=== PATIENT | female | born 1945 | race African-American/Black ===

== ENCOUNTER 2017-06-16 09:01 | Emergency (ER) | payer OTHER ==
--- NOTE | 2017-06-16 11:09 | RAD REPORT ---
EXAM DESCRIPTION: RAD - Chest Single View - 06/16/2017 11:02 am CLINICAL HISTORY: Persistent chest pain and body ache, cough COMPARISON: None. TECHNIQUE: AP portable chest image was obtained . FINDINGS: Lungs are clear. Heart and vasculature are normal. No measurable pleural effusion and no p neumothorax. Bony degenerative changes are present more notable at the left shoulder joint. No acute bone process suspected on limited evaluation. No acute aortic findings suspected. IMPRESSION: No acute cardiopulmonary process.
[2017-06-16 11:29] LABS: Absolute Lymphocytes (CBC) 2.2 K/uL (0.7-4.9); Absolute Monocytes 0.5 K/uL (0.1-1.3); Absolute Neutrophil 4.3 K/uL (1.8-8.0); Basophils % 0.4 % (0-1.3); Eosinophils % 0.2 % (0-4.4); Hematocrit 32.5 % (36.0-45.0); Lymphocytes % 31.4 % (15.3-44.8); MCH 29.5 pg (27.0-35.0); MPV 8.7 fL (7.6-11.3); Monocytes % 7.3 % (3.3-12.3); RBC Red Blood Cell Count 3.69 M/uL (3.86-4.86)
[2017-06-16 11:40] LABS: Bicarbonate 31 mEq/L (21-31); Glucose Level 85 mg/dL (65-120); Lipase 14 U/L (22-51); Potassium 3.6 mEq/L (3.6-5.0); Sodium Level 140 mEq/L (135-145)
[2017-06-16 11:46] LABS: ALT/SGPT 18 IU/L (10-60); AST/SGOT 23 IU/L (10-42); Albumin 3.7 g/dL (3.2-5.5); Alkaline Phosphatase 60 IU/L (42-121); BUN Blood Urea Nitrogen 15 mg/dL (6-20); Bilirubin Direct < 0.1 mg/dL (0-0.2); Bilirubin Total 0.5 mg/dL (0.3-1.2); Creatine Phosphokinase 74 IU/L (22-269); Magnesium 1.6 mg/dL (1.8-2.5); Protein, Total 7.1 g/dL (6.0-8.3)
[2017-06-16 11:49] LABS: CKMB Creatine Kinase MB 1.4 ng/ml (0.3-4.0)
[2017-06-16 11:52] LABS: Protime INR 0.99
[2017-06-16] MEDS ORDERED: FENTANYL CITR 100 MCG/2 ML ONE (12:54)
[2017-06-16] MEDS ORDERED: NA CHLORIDE 0.9% 1,000 ML ONE (12:54)
[2017-06-16] MEDS ORDERED: ONDANSETRON 4 MG/2 ML VIAL ONE (12:55)
--- NOTE | 2017-06-16 13:12 | EDPHYS ---
Physician Documentation [facility] Name: Nya Romero Age: 71 yrs Sex: Female : 1945 Arrival Date: 06/16/2017 Time: 09:04 Bed Treatment Private MD: Codey Garcia R ED Physician Tyron Torres HPI: 06/16 10:56 This 71 yrs old Black Female presents to ER via Wheelchair with complaints of Pain All jennifer Over. 10:56 hx chronic pain. Onset: The symptoms/episode began/occurred 3 day(s) ago. Severity of jennifer symptoms: At their worst the symptoms were mild in the emergency department the symptoms are unchanged. The patient has not experienced similar symptoms in the past. Historical: - Allergies: 09:56 PENICILLINS; iw - PMHx: 09:56 Arthritis; CVA; iw - PSHx: 09:56 None; iw - Immunization history:: Adult Immunizations up to date. - Social history:: Smoking status: Patient/guardian denies using tobacco. - Family history:: not pertinent. ROS: 10:56 Constitutional: Negative for fever, chills, and weight loss, Eyes: Negative for injury, jennifer pain, redness, and discharge, ENT: Negative for injury, pain, and discharge, Neck: Negative for injury, pain, and swelling, Cardiovascular: Negative for chest pain, palpitations, and edema, Respiratory: Negative for shortness of breath, cough, wheezing, and pleuritic chest pain, Abdomen/GI: Negative for abdominal pain, nausea, vomiting, diarrhea, and constipation, Back: Negative for injury and pain, : Negative for injury, bleeding, discharge, and swelling, Skin: Negative for injury, rash, and discoloration, Neuro: Negative for headache, weakness, numbness, tingling, and seizure, Psych: Negative for depression, anxiety, suicide ideation, homicidal ideation, and hallucinations, Allergy/Immunology: Negative for hives, rash, and allergies, Endocrine: Negative for neck swelling, polydipsia, polyuria, polyphagia, and marked weight changes. 10:56 MS/extremity: Positive for decreased range of motion, pain, of the right arm, left arm, right leg and left leg. Exam: 10:56 Constitutional: This is a well developed, well nourished patient who is awake, alert, jennifer and in no acute distress. Head/Face: Normocephalic, atraumatic. Eyes: Pupils equal round and reactive to light, extra-ocular motions intact. Lids and lashes normal. Conjunctiva and sclera are non-icteric and not injected. Cornea within normal limits. Periorbital areas with no swelling, redness, or edema. ENT: Nares patent. No nasal discharge, no septal abnormalities noted. Tympanic membranes are normal and external auditory canals are clear. Oropharynx with no redness, swelling, or masses, exudates, or evidence of obstruction, uvula midline. Mucous membranes moist. Neck: Trachea midline, no thyromegaly or masses palpated, and no cervical lymphadenopathy. Supple, full range of motion without nuchal rigidity, or vertebral point tenderness. No Meningismus. Chest/axilla: Normal chest wall appearance and motion. Nontender with no deformity. No lesions are appreciated. Cardiovascular: Regular rate and rhythm with a normal S1 and S2. No gallops, murmurs, or rubs. Normal PMI, no JVD. No pulse deficits. Respiratory: Lungs have equal breath sounds bilaterally, clear to auscultation and percussion. No rales, rhonchi or wheezes noted. No increased work of breathing, no retractions or nasal flaring. Abdomen/GI: Soft, non-tender, with normal bowel sounds. No distension or tympany. No guarding or rebound. No evidence of tenderness throughout. Back: No spinal tenderness. No costovertebral tenderness. Full range of motion. Skin: Warm, dry with normal turgor. Normal color with no rashes, no lesions, and no evidence of cellulitis. Neuro: Awake and alert, GCS 15, oriented to person, place, time, and situation. Cranial nerves II-XII grossly intact. Motor strength 5/5 in all extremities. Sensory grossly intact. Cerebellar exam normal. Normal gait. Psych: Awake, alert, with orientation to person, place and time. Behavior, mood, and affect are within normal limits. 10:56 Musculoskeletal/extremity: Extremities: decreased ROM, pain, ROM: limited active range of motion, limited passive range of motion, Circulation is intact in all extremities. Sensation intact. Compartment Syndrome exam of affected extremity: is normal. DVT Exam: no swelling, negative Homans' sign noted on exam, no appreciated bluish discoloration, no erythema, no increased warmth, pain, tenderness, that is mild. 13:09 Neck: External neck: is normal, no acute changes, C-spine: appears grossly normal, no jennifer acute changes, Thyroid: appears normal, no acute changes, Trachea: is midline with no obvious abnormalities, ROM/movement: is normal, no acute changes, Lymph nodes: no appreciated lymphadenopathy. Vital Signs: 09:56 BP 113 / 67; Pulse 64; Resp 16; Temp 98.4; Pulse Ox 100% on R/A; Weight 74.84 kg; iw Height 5 ft. 5 in. (165.10 cm); Pain 10/10; 10:10 BP 138 / 77; Pulse 61; Resp 20; Pulse Ox 98% on R/A; aj1 11:15 BP 122 / 53; Pulse 63; Resp 18; Pulse Ox 99% on R/A; aj1 12:15 BP 122 / 55; Pulse 63; Resp 18; Pulse Ox 99% ; aj1 13:16 BP 116 / 48; Pulse 63; Resp 14; Pulse Ox 99% ; aj1 14:15 BP 115 / 52; Pulse 62; Resp 18; Pulse Ox 99% ; aj1 15:15 BP 122 / 57; Pulse 65; Resp 18; Pulse Ox 97% on R/A; aj1 16:00 BP 124 / 60; Pulse 63; Resp 18; Pulse Ox 99% ; aj1 09:56 Body Mass Index 27.46 (74.84 kg, 165.10 cm) iw MDM: 10:07 Patient medically screened. [facility] 13:09 Data reviewed: vital signs, nurses notes, lab test result(s), EKG, radiologic studies, [facility] plain films. 06/16 10:12 Order name: Basic Metabolic Panel; Complete Time: 12: [facility] 06/16 10:12 Order name: BNP; Complete Time: 12: [facility] 06/16 10:12 Order name: CBC with Diff; Complete Time: 12: [facility] 06/16 10:12 Order name: Ckmb; Complete Time: 12: [facility] 06/16 10:12 Order name: CPK; Complete Time: 12: [facility] 06/16 10:12 Order name: LFT's; Complete Time: 12: [facility] 06/16 10:12 Order name: Magnesium; Complete Time: 12: [facility] 06/16 10:12 Order name: PT-INR; Complete Time: 12: [facility] 06/16 10:12 Order name: Ptt, Activated; Complete Time: 12: [facility] 06/16 10:12 Order name: Troponin (emerg Dept Use Only); Complete Time: 12: [facility] 06/16 10:12 Order name: Lipase; Complete Time: 12: [facility] 06/16 13:30 Order name: Urine Dipstick--Ancillary (enter results) 06/16 10:12 Order name: XRAY Chest (1 view); Complete Time: 12: [facility] 06/16 10:12 Order name: EKG; Complete Time: 10: [facility] 06/16 10:12 Order name: Cardiac monitoring; Complete Time: 12: [facility] 06/16 10:12 Order name: EKG - Nurse/Tech; Complete Time: 12: [facility] 06/16 10:12 Order name: IV Saline Lock; Complete Time: 12: [facility] 06/16 10:12 Order name: Labs collected and sent; Complete Time: 12: [facility] 06/16 10:12 Order name: O2 Per Protocol; Complete Time: 12: [facility] 06/16 10:12 Order name: O2 Sat Monitoring; Complete Time: 12:19 [facility] Administered Medications: 13:08 Drug: NS 0.9% 1000 ml Route: IV; Rate: 125 ml/hr; Site: right antecubital; aj1 13:08 Drug: fentaNYL (PF) 25 mcg Route: IVP; Site: right antecubital; aj1 14:47 Follow up: Response: No adverse reaction aj1 13:09 Drug: Zofran 4 mg Route: IVP; Site: right antecubital; aj1 14:47 Follow up: Response: No adverse reaction aj1 14:46 Drug: Magnesium Sulfate 1 grams Route: IVPB; Infused Over: 1 hrs; Site: right aj1 antecubital; Disposition: 06/16/17 13:12 Discharged to Home. Impression: Malaise and fatigue, Other chronic pain, Hypomagnesemia. - Condition is Stable. - Discharge Instructions: Chronic Pain, Hypomagnesemia, Weakness, Weakness, [id number]. - Medication Reconciliation Form, Thank You Letter, Antibiotic Education, Prescription Opioid Use form. - Follow up: Codey Garcia MD; When: 2 - 3 days; Reason: Recheck today's complaints, Continuance of care, Re-evaluation by your physician. - Problem is new. - Symptoms have improved. Signatures: Dispatcher [employer] Melida Raines RN RN aj1 Kendrick Rocha RN RN sg Anderson, Corey, MD MD cha Williams, Irene, RN RN iw Corrections: (The following items were deleted from the chart) 16:33 10:13 Urine Culture+BA.LAB.BRZ ordered. EDMS EDMS 16:33 10:13 BLOOD CULTURE*+BA.LAB.BRZ ordered. EDMS EDMS
--- NOTE | 2017-06-16 13:12 | ER ---
Nurse's Notes [facility] Name: Nya Romero Age: 71 yrs Sex: Female : 1945 Arrival Date: 06/16/2017 Time: 09:04 Bed Treatment Private MD: Codey Garcia R Diagnosis: Malaise and fatigue;Other chronic pain;Hypomagnesemia Presentation: 06/16 09:53 Presenting complaint: Child states: has had full body pain since , denies iw injury, also feeling more weak than usual, not able to hold herself up as well, denies fever but feels cold sometimes. Transition of care: patient was not received from another setting of care. Onset of symptoms was June 13, 2017. Initial Sepsis Screen: Does the patient meet any 2 criteria? No. Patient's initial sepsis screen is negative. Does the patient have a suspected source of infection? No. Patient's initial sepsis screen is negative. Care prior to arrival: None. 09:53 Method Of Arrival: Wheelchair iw 09:53 Acuity: TUYET 3 iw Historical: - Allergies: 09:56 PENICILLINS; iw - PMHx: 09:56 Arthritis; CVA; iw - PSHx: 09:56 None; iw - Immunization history:: Adult Immunizations up to date. - Social history:: Smoking status: Patient/guardian denies using tobacco. - Family history:: not pertinent. Screenin:10 Abuse screen: Denies threats or abuse. Denies injuries from another. Nutritional aj1 screening: No deficits noted. Tuberculosis screening: No symptoms or risk factors identified. Assessment: 10:10 General: Appears in no apparent distress. uncomfortable, Behavior is calm, cooperative, aj1 appropriate for age. Pain: Complains of pain in entire body Pain currently is 10 out of 10 on a pain scale. Quality of pain is described as aching, stabbing. Neuro: Level of Consciousness is awake, alert, obeys commands, Oriented to person, place, time, situation, Professor Of Astronomy are weak bilaterally Moves all extremities. Weakness Facial symmetry appears normal. Cardiovascular: Patient's skin is warm and dry. Respiratory: Airway is patent Respiratory effort is even, unlabored, Respiratory pattern is regular, symmetrical, Breath sounds are clear bilaterally. GI: No signs and/or symptoms were reported involving the gastrointestinal system. : No signs and/or symptoms were reported regarding the genitourinary system. EENT: No signs and/or symptoms were reported regarding the EENT system. Derm: No signs and/or symptoms reported regarding the dermatologic system. Skin is pink, warm \T\ dry. normal. Musculoskeletal: No signs and/or symptoms reported regarding the musculoskeletal system. Circulation, motion, and sensation intact. 11:10 Reassessment: Patient appears in no apparent distress at this time. No changes from aj1 previously documented assessment. Patient and/or family updated on plan of care and expected duration. Pain level reassessed. Patient is alert, oriented x 3, equal unlabored respirations, skin warm/dry/pink. 12:10 Reassessment: Patient appears in no apparent distress at this time. No changes from aj1 previously documented assessment. Patient and/or family updated on plan of care and expected duration. Pain level reassessed. Patient is alert, oriented x 3, equal unlabored respirations, skin warm/dry/pink. 13:14 Reassessment: Patient appears in no apparent distress at this time. No changes from aj1 previously documented assessment. Patient and/or family updated on plan of care and expected duration. Pain level reassessed. Patient is alert, oriented x 3, equal unlabored respirations, skin warm/dry/pink. 15:15 Reassessment: Patient and/or family updated on plan of care and expected duration. Pain aj1 level reassessed. General: Appears in no apparent distress. comfortable, Behavior is calm, cooperative, appropriate for age. Neuro: Level of Consciousness is awake, alert, obeys commands, Oriented to person, place, time, situation. Cardiovascular: Patient's skin is warm and dry. Respiratory: Airway is patent Respiratory effort is even, unlabored, Respiratory pattern is regular, symmetrical. GI: No signs and/or symptoms were reported involving the gastrointestinal system. : No signs and/or symptoms were reported regarding the genitourinary system. EENT: No signs and/or symptoms were reported regarding the EENT system. Derm: No signs and/or symptoms reported regarding the dermatologic system. Skin is pink, warm \T\ dry. normal. Musculoskeletal: No signs and/or symptoms reported regarding the musculoskeletal system. Circulation, motion, and sensation intact. 16:09 Reassessment: Patient appears in no apparent distress at this time. No changes from aj1 previously documented assessment. Patient and/or family updated on plan of care and expected duration. Pain level reassessed. Patient is alert, oriented x 3, equal unlabored respirations, skin warm/dry/pink. Vital Signs: 09:56 BP 113 / 67; Pulse 64; Resp 16; Temp 98.4; Pulse Ox 100% on R/A; Weight 74.84 kg; iw Height 5 ft. 5 in. (165.10 cm); Pain 10/10; 10:10 BP 138 / 77; Pulse 61; Resp 20; Pulse Ox 98% on R/A; aj1 11:15 BP 122 / 53; Pulse 63; Resp 18; Pulse Ox 99% on R/A; aj1 12:15 BP 122 / 55; Pulse 63; Resp 18; Pulse Ox 99% ; aj1 13:16 BP 116 / 48; Pulse 63; Resp 14; Pulse Ox 99% ; aj1 14:15 BP 115 / 52; Pulse 62; Resp 18; Pulse Ox 99% ; aj1 15:15 BP 122 / 57; Pulse 65; Resp 18; Pulse Ox 97% on R/A; aj1 16:00 BP 124 / 60; Pulse 63; Resp 18; Pulse Ox 99% ; aj1 09:56 Body Mass Index 27.46 (74.84 kg, 165.10 cm) iw ED Course: 09:04 Patient arrived in ED. mr 09:05 Codey Garcia MD is Private Physician. mr 09:56 Triage completed. iw 09:56 Arm band placed on. iw 10:07 Tyron Torres MD is Attending Physician. jennifer 10:10 Patient has correct armband on for positive identification. Bed in low position. Call aj1 light in reach. Side rails up X 1. bus driver/monitor on. Pulse ox on. NIBP on. 10:10 No provider procedures requiring assistance completed. aj1 10:38 Melida Johnson, RN is Primary Nurse. aj1 10:41 X-ray completed. Portable x-ray completed in exam room. Patient tolerated procedure ml well. 10:42 XRAY Chest (1 view) In Process Unspecified. EDMS 10:52 EKG done, by photovoltaic installation technician. reviewed by Tyron Torres MD. at1 13:10 Codey Garica MD is Referral Physician. jennifer 16:00 Primary Nurse role handed off by Melida Johnson RN 16:00 Kendrick Rocha, RN is Primary Nurse. 16:10 Report given to Aishwarya Rocha RN. Patient moved to treatment room to wait for her ride to [facility] return. 16:30 IV discontinued, intact, bleeding controlled, No redness/swelling at site. Pressure sg dressing applied. Administered Medications: 13:08 Drug: NS 0.9% 1000 ml Route: IV; Rate: 125 ml/hr; Site: right antecubital; [facility] 13:08 Drug: fentaNYL (PF) 25 mcg Route: IVP; Site: right antecubital; [facility] 14:47 Follow up: Response: No adverse reaction [facility] 13:09 Drug: Zofran 4 mg Route: IVP; Site: right antecubital; [facility] 14:47 Follow up: Response: No adverse reaction [facility] 14:46 Drug: Magnesium Sulfate 1 grams Route: IVPB; Infused Over: 1 hrs; Site: right [facility] antecubital; Outcome: 13:12 Discharge ordered by MD. rodriguez 16:30 Discharged to home via wheelchair, with family. 16:30 Condition: good 16:30 Discharge instructions given to patient, Instructed on discharge instructions, follow up and referral plans. safety practices, Demonstrated understanding of instructions, follow-up care. 16:33 Patient left the ED. sg Signatures: Dispatcher [employer] EDMS Melida Johnson, JEREMY LUNA [facility] Kendrick Rocha, RN Tyron Levine MD MD cha Rivera, Maria mr Williams, Irene, RN Chantelle William Amanda, administrative supervisor EKG Tat1 Corrections: (The following items were deleted from the chart) 16:02 14:15 BP 115 / 5; Pulse 62bpm; Resp 18bpm; Pulse Ox 99%; aj1 aj
[2017-06-16 13:52] LABS: Urine Blood NEGATIVE (NEG); Urine Glucose NEGATIVE (NEG); Urine Protein NEGATIVE (NEG); Urine Specific Gravity <1.005 (1.005-1.030); Urine pH 5.5 (5.0-7.0)
--- NOTE | 2017-06-16 13:53 | EKG ---
Test Date: 2017-06-16 Test Time: 10:40:24 Spanish Language Lecturer: ALAN MEASUREMENT RESULTS: Intervals: Rate: 61 WV: 198 QRSD: 74 QT: 406 QTc: 408 Murphy: P: 72 WV: 198 QRS: 21 T: 45 INTERPRETIVE STATEMENTS: Normal sinus rhythm Normal ECG Compared to ECG 03/24/2017 13:32:43 No significant changes Electronically Signed On 06-16-17 13:52:30 CDT by Isidoro Salas
[2017-06-16] MEDS ORDERED: MAGNESIUM SULFATE 1 gm IVPB 1 GM/100 ML BAG IV ONE (14:43)
== END 2017-06-16 16:33 | disposition home or self-care (01) ==
LOC: ER 09:01
DX: R53.81 Other malaise (principal); R53.83 Other fatigue; E83.42 Hypomagnesemia; Z88.0 Allergy status to penicillin
CPT/HCPCS: 36415; 71045; 80048; 80076; 81003; 82550; 82553; 83690; 83735; 83880; 84484; 85025; 85610; 85730; 93005; 96374; 96375; 99284; J2405; J3010; J3475; J7030

== ENCOUNTER 2021-03-04 14:54 | Emergency (ER) | payer OTHER ==
--- OUTSIDE RECORDS SUMMARY | 2021-03-04 14:57 | XMS REPORT | Continuity of Care Document ---
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 [place] [place] - of left of left Memoria nondominan nondominan l t side as t side as Outp ati late late ent effect of effect of Clin ics cerebrovas cerebrovas cular cular disease, disease, unspecifie unspecifie d d 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 Primary Primary Diagnosis Active [facility] osteoarthr osteoarthr [facility] - itis, left itis, left Me moria shoulder shoulder l Outpati ent Clinics No known No known Disease Unive rs active active ity of problems problems [place] [facility] Allergies, Adverse Reactions, Alerts Allergy Allergy Status Severity Reaction(s) Onset Inactive Treating Comm ents Source Name Type Date Date Clinician Penicill Propensi Active Hives Univer s ins ty to 3-12 ity of adverse 00:00: [place] reaction 00 Medical s Branch Peniclli Adverse Active Info Not [facility] Sabrina funes [facility] Clin[facility] Social History Social Habit Start Date Stop Date Quantity Comments Source Exposure to Not sure [facility] SARS-CoV-2 (event) Medica l Branch Alcohol intake 2020-09-05 2020-09-05 0 /d [facility] 00:00:00 00:00:00 [facility] [place] Tobacco use and 2015-09-22 2015-09-22 Never used [facility] exposure 00:00:00 00:00:00 [facility] Sex Ass[birth year] [facility] 00:00:00 00:00:00 [facility] Smoking Status Start Date Stop Date Source Never smoker [facility] Medications Ordered Filled Start Stop Current Ordering Indication Dosage Frequency Signature Comments Components Source Medication Medication Date Date Medication? Clinician (SIG) Name Name CARBIDOPA-L Yes Take by Un john EVODOPA 7-13 mouth. ity of ORAL 10:29: [address] HYDROCODONE Yes Take by Un john -ACETAMINOP 7-13 mouth. ity of HEN ORAL 10:27: [address] SIMVASTATIN Yes Take by Un john ORAL 7-13 mouth. ity of 10:27: [address] PREGABALIN Yes Take by Uni vers (LYRICA 7-13 mouth. ity of ORAL) 10:23: [address] gabapentin Yes 600mg Take 600 Un john (NEURONTIN) 7-13 mg by ity of 600 mg 10:23: mouth 3 [place] tablet 37 (three) Medical times Branch daily. BACLOFEN Yes Take by Unive rs ORAL 7-13 mouth. ity of 10:23: [address] HYDROcodone Yes 1{tbl} Take 1 Un john -acetaminop 6-24 tablet by ity of hen 7.5-325 00:00: mouth 3 Mo as mg per 00 (three) Medical tablet times Branch daily. ondansetron Yes TAKE 1 Univ ers 4 mg tablet 6-07 TABLET BY ity of 00:00: MOUTH [place] 00 TWICE Medical DAILY Branch NEEDED atorvastati Yes 10mg Take 10 mg Univers n 10 mg 5-27 by mouth ity of tablet 00:00: every 00 morning. Medical Branch amitriptyli Yes TAKE 1 Univ ers ne 10 mg 5-21 TABLET BY ity of tablet 00:00: MOUTH AT [place] 00 NIGHT Medical Branch predniSONE Yes Univers 10 mg 4-23 ity of tablet 00:00: [place] 00 [facility] atorvastati atorvastati Yes Dall[place] not [facility] Omeprazole Omeprazole Yes Dall[place] not [facility] [place] Yes Dall[place] not [facility] Aspir-81 Aspir-81 Yes [facility] not [facility] Gabapentin Gabapentin Yes Dall[facility] not [facility] Vital Signs Vital Name Observation Time Observation Value Comments Source Heart rate 2021-01-05 16:41:00 [facility] Respiratory rate 2021-01-05 16:41:00 18 /min [facility] Procedures This patient has no known procedures. Encounters Start End Encounter Admission Attending Care Care Encounter Source Date/Time Date/Time Type Type Clinicians Facility Department ID 2021-01-05 2021-01-05 Office Bernabe [facility] [id number] [facility] 10:33:36 11:24:07 Visit [facility] [id number] ity of CERULEAN [id number] Mo as MOJGAN?BLEA [id number] [address] MEDICAL OFFICE BUILDING 2017-12-10 2017-12-10 [facility] [id number] 09:30:00 09:30:00 [facility] ent Clinics Results This patient has no known results.
[2021-03-04 16:56] LABS: Absolute Lymphocytes (CBC) 1.4 K/uL (0.7-4.9); Hematocrit 34.6 % (36.0-45.0); Lymphocytes % 16.8 % (15.3-44.8); MPV 8.7 fL (7.6-11.3); RBC Red Blood Cell Count 3.97 M/uL (3.86-4.86)
--- NOTE | 2021-03-04 16:58 | RAD REPORT ---
EXAM DESCRIPTION: David Single View03/04/2021 4:47 pm CLINICAL HISTORY: Cough COMPARISON: 2018 FINDINGS: Moderate bilateral pulmonary opacities. Heart is borderline enlarged IMPRESSION: Moderate bilateral pulmonary opacities probably pneumonia
[2021-03-04 17:03] LABS: Sodium Level 141 mmol/L (136-145)
[2021-03-04 17:18] LABS: SARS-COV-2 RT PCR POSITIVE (NEGATIVE)
[2021-03-04 17:31] LABS: ALT/SGPT 30 U/L (12-78); Albumin 2.4 g/dL (3.4-5.0); Alkaline Phosphatase 55 U/L (45-117); BUN Blood Urea Nitrogen 23 mg/dL (7-18); Bicarbonate 27 mmol/L (21-32); Bilirubin Direct 0.1 mg/dL (0-0.2); Bilirubin Total 0.6 mg/dL (0.2-1.0); Ferritin 611.2 ng/mL (8-388); Glucose Level 108 mg/dL (74-106); Lipase 101 U/L (73-393); Protein, Total 7.8 g/dL (6.4-8.2); Troponin (Emerg Dept Use Only) < 0.02 ng/mL (0.0-0.045)
[2021-03-04 17:32] LABS: AST/SGOT 58 U/L (15-37); Potassium 4.7 mmol/L (3.5-5.1)
[2021-03-04 17:36] LABS: Protime INR 1.29
[2021-03-04 18:06] LABS: Urine Blood 1+ (Negative); Urine Glucose Negative (Negative); Urine Protein 2+ (Negative); Urine Specific Gravity >=1.030 (1.005-1.030)
[2021-03-04 18:23] LABS: Urine Bacteria >50 /HPF (<20)
[2021-03-04 18:24] LABS: Urine Amorphous Sediment 2+ /HPF (NONE SEEN); Urine Mucus 4+ /HPF (NONE SEEN)
--- NOTE | 2021-03-04 19:15 | ER ---
Nurse's Notes [facility] Name: Nya Romero Age: 75 yrs Sex: Female : 1945 Arrival Date: 03/04/2021 Time: 14:58 Bed 14 Private MD: Codey Garcia R Diagnosis: Pneumonia due to SARS-associated coronavirus;Hypoxia;Vomiting Presentation: 03/04 15:10 Chief complaint: Patient's son or daughter states: Muscle aches, weakness, coughing and ww diarrhea that has been going on for a few days. Coronavirus screen: Vaccine status: Patient reports being unvaccinated. Client denies travel out of the [place] in the last 14 days. Ebola Screen: Patient negative for fever greater than or equal to 101.5 degrees Fahrenheit, and additional compatible Ebola Virus Disease symptoms Patient denies exposure to infectious person. Initial Sepsis Screen: Does the patient meet any 2 criteria? No. Patient's initial sepsis screen is negative. Does the patient have a suspected source of infection? No. Patient's initial sepsis screen is negative. Risk Assessment: Do you want to hurt yourself or someone else? Patient reports no desire to harm self or others. Onset of symptoms is unknown. 15:10 Method Of Arrival: Wheelchair ww 15:10 Acuity: TUYET 3 ww Triage Assessment: 15:12 General: Appears well developed, Behavior is cooperative, appropriate for age. Pain: ww Complains of pain in generalized body aches. EENT: No deficits noted. No signs and/or symptoms were reported regarding the EENT system. Neuro: Level of Consciousness is awake, alert, obeys commands, Oriented to person, place, time. Respiratory: Airway is patent Respiratory effort is even, unlabored, Respiratory pattern is regular, symmetrical. GI: No deficits noted. No signs and/or symptoms were reported involving the gastrointestinal system. : No deficits noted. No signs and/or symptoms were reported regarding the genitourinary system. Derm: No deficits noted. Skin is healthy with good turgor. Historical: - Allergies: 15:12 PENICILLINS; ww - PMHx: 15:12 Arthritis; CVA; ww - Immunization history:: Client reports having NOT received the Covid vaccine. - Social history:: Smoking status: Patient denies any tobacco usage or history of. Screenin:14 Abuse screen: Denies threats or abuse. Denies injuries from another. Nutritional ww screening: No deficits noted. Tuberculosis screening: No symptoms or risk factors identified. 16:14 Fall Risk None identified. Exposure risk/Travel Screening: None identified. ic1 Assessment: 16:15 General: Appears in no apparent distress. uncomfortable, Behavior is calm, cooperative. ic1 Pain: Complains of pain in back, buttocks, chest, abdomen and pelvis. Neuro: No deficits noted. Cardiovascular: Rhythm is sinus tachycardia Chest pain is denied. Respiratory: Reports shortness of breath at rest on exertion. GI: Reports diarrhea, nausea. : No deficits noted. : Parent/caregiver report the patient having orange-colored urine. EENT: No deficits noted. Derm: No deficits noted. Musculoskeletal: Parent/caregiver report the patient having weakness in back, buttocks, chest, abdomen, pelvis, right arm, left arm, right leg and left leg. 19:01 Reassessment: Report given to JEREMY Hernández. ic1 19:01 Reassessment: Pt remains on cont monitoring. Denies distress. Caregiver at bedside. ic1 Vital Signs: 15:10 Pulse 107; Resp 16; Temp 97.9(TE); Pulse Ox 96% on R/A; Weight 88 kg; Height 5 ft. 5 ww in. (165.10 cm); 16:14 BP 105 / 89; Pulse 110; Resp 20; Pulse Ox 88% on R/A; ic1 18:09 BP 107 / 92; Pulse 105; Resp 16; Pulse Ox 97% on 1 lpm NC; ic1 15:10 Body Mass Index 32.28 (88.00 kg, 165.10 cm) ww Jazmyn Coma Score: 16:14 Eye Response: spontaneous(4). Verbal Response: oriented(5). Motor Response: obeys ic1 commands(6). Total: 15. ED Course: 14:58 Patient arrived in ED. as 14:58 Codey Garcia MD is Private Physician. as 15:12 Triage completed. ww 15:12 Arm band placed on left wrist. ww 15:16 COVID swab sent to lab. Flu and/or RSV swab sent to lab. ww 15:52 John Patel NP is PHCP. pm1 15:52 Eddie Lobato MD is Attending Physician. pm1 16:14 Patient has correct armband on for positive identification. Bed in low position. Call ic1 light in reach. Side rails up X2. 16:14 Inserted saline lock: 20 gauge in right antecubital area, using aseptic technique. ic1 Blood collected. 16:47 CXR XRAY In Process Unspecified. EDMS 16:56 Ferritin Sent. ic1 16:56 Liver (Hepatic) Function Sent. ic1 16:56 C-Reactive Protein Sent. ic1 16:56 CBC with Automated Diff Sent. ic1 16:56 D-Dimer Sent. ic1 16:56 Blood Culture Sent. ic1 16:56 Basic Metabolic Panel Sent. ic1 16:56 Lactate Sent. ic1 16:56 Lipase Sent. ic1 16:56 PT-INR Sent. ic1 16:56 Procalcitonin Sent. ic1 16:56 Ptt, Activated Sent. ic1 16:56 Strep Sent. ic1 16:56 Troponin (emerg Dept Use Only) Sent. ic1 16:57 BMP Sent. ic1 16:57 C-Reactive Protein Sent. ic1 16:57 CBC with Diff Sent. ic1 16:57 D-Dimer Sent. ic1 16:57 Ferritin Sent. ic1 16:57 LFT's Sent. ic1 17:28 Blood Culture Sent. ic1 20:39 Kendrick Bateman, RN is Primary Nurse. sv1 20:39 No provider procedures requiring assistance completed. sv1 20:40 IV discontinued. sv1 Administered Medications: 17:36 Drug: NS 0.9% 500 ml Route: IV; Rate: bolus; Site: right antecubital; ic1 Outcome: 20:39 Discharged to home via wheelchair, with family. sv1 20:39 Condition: stable 20:39 Discharge instructions given to patient. 20:42 Patient left the ED. sv1 Signatures: Dispatcher [employer] Wray Patrick, AND [employer] pm1 Kendrick Bateman, JEREMY LUNA sv1 Velvet Elaine RN RN ww Juliann Perez RN RN ic1
--- NOTE | 2021-03-04 19:16 | EDPHYS ---
Physician Documentation [facility] Name: Nya Romero Age: 75 yrs Sex: Female : 1945 Arrival Date: 03/04/2021 Time: 14:58 Bed 14 Private MD: Codey Garcia R ED Physician Eddie Lobato HPI: 03/04 16:26 This 75 yrs old Black Female presents to ER via Wheelchair with complaints of r/o covid.pm1 16:26 The patient or guardian reports cough, with no sputum. Onset: The symptoms/episode pm1 began/occurred 3 day(s) ago. Severity of symptoms: in the emergency department the symptoms are actually worse. Modifying factors: The symptoms are alleviated by nothing, the symptoms are aggravated by nothing. Associated signs and symptoms: Pertinent positives: diarrhea, nausea, vomiting, Pertinent negatives: chest pain, fever. The patient has not experienced similar symptoms in the past. The patient has not recently seen a physician. Historical: - Allergies: 15:12 PENICILLINS; ww - PMHx: 15:12 Arthritis; CVA; ww - Immunization history:: Client reports having NOT received the Covid vaccine. - Social history:: Smoking status: Patient denies any tobacco usage or history of. ROS: 16:26 Eyes: Negative for injury, pain, redness, and discharge, ENT: Negative for injury, pm1 pain, and discharge, Cardiovascular: Negative for chest pain, palpitations, and edema. 16:26 Back: Negative for injury and pain, MS/Extremity: Negative for injury and deformity, Skin: Negative for injury, rash, and discoloration, Neuro: Negative for headache, weakness, numbness, tingling, and seizure. 16:26 Constitutional: Positive for body aches, poor PO intake. 16:26 Constitutional: Positive for chills, Negative for fever. 16:26 Respiratory: Positive for cough, Negative for shortness of breath, sputum production. 16:26 Abdomen/GI: Positive for nausea, vomiting, and diarrhea, Negative for abdominal pain. 16:26 All other systems are negative. Exam: 16:26 Constitutional: This is a well developed, well nourished patient who is awake, alert, pm1 and in no acute distress. Head/Face: Normocephalic, atraumatic. 16:26 Back: No spinal tenderness. No costovertebral tenderness. Full range of motion. Skin: Warm, dry with normal turgor. Normal color with no rashes, no lesions, and no evidence of cellulitis. MS/ Extremity: Pulses equal, no cyanosis. Neurovascular intact. Full, normal range of motion. 16:26 Cardiovascular: Exam negative for acute changes, Rate: tachycardic, Rhythm: regular, Pulses: no pulse deficits are appreciated, Heart sounds: normal. 16:26 Respiratory: Exam negative for acute changes, the patient does not display signs of respiratory distress, Respirations: normal, Breath sounds: are clear throughout. 16:26 Abdomen/GI: Inspection: abdomen appears normal, Palpation: abdomen is soft and non-tender, in all quadrants. 16:26 Neuro: Exam negative for acute changes, Orientation: is normal, Mentation: is normal, Motor: is normal, moves all fours. Vital Signs: 15:10 Pulse 107; Resp 16; Temp 97.9(TE); Pulse Ox 96% on R/A; Weight 88 kg; Height 5 ft. 5 ww in. (165.10 cm); 16:14 BP 105 / 89; Pulse 110; Resp 20; Pulse Ox 88% on R/A; ic1 18:09 BP 107 / 92; Pulse 105; Resp 16; Pulse Ox 97% on 1 lpm NC; ic1 15:10 Body Mass Index 32.28 (88.00 kg, 165.10 cm) ww Elton Coma Score: 16:14 Eye Response: spontaneous(4). Verbal Response: oriented(5). Motor Response: obeys ic1 commands(6). Total: 15. MDM: 16:15 Patient medically screened. pm1 18:03 Refusal of service: The patient/guardian displays adequate decision making capability pm1 and despite a detailed discussion of alternatives, benefits, risks, and consequences refuses: Admission to the hospital for further work-up and treatment. 19:07 Data reviewed: vital signs. Data interpreted: Pulse oximetry: on 2L(s) per nasal pm1 canula, is 97 %. Interpretation: acceptable. Counseling: I had a detailed discussion with the patient and/or guardian regarding: the historical points, exam findings, and any diagnostic results supporting the discharge/admit diagnosis, lab results, radiology results, the need for further work-up and treatment in the hospital. 19:07 Refusal of service: The patient/guardian displays adequate decision making capability pm1 and despite a detailed discussion of alternatives, benefits, risks, and consequences refuses: Admission to the hospital for further work-up and treatment, Patient does not want to stay in the hospital despite the severity of her illness with covid pneumonia. Patient believes that her vitaly will save her. Patient's family at bedside and is unable to convince her to stay in the hospital. . 03/04 15:14 Order name: COVID-19/FLU A+B (Document "Date of Onset" if Symptomatic); Complete Time: ww 17:19 03/04 16:22 Order name: BMP pm03/04 16:22 Order name: C-Reactive Protein pm03/04 16:22 Order name: CBC with Diff pm03/04 16:22 Order name: D-Dimer pm1 03/04 16:22 Order name: Ferritin pm03/04 16:22 Order name: LFT's pm03/04 16:22 Order name: Lactate; Complete Time: 17:18 pm03/04 16:22 Order name: Lipase; Complete Time: 17:47 pm03/04 16:22 Order name: PT-INR; Complete Time: 17:57 pm03/04 16:22 Order name: Procalcitonin; Complete Time: 17:57 pm03/04 16:22 Order name: Ptt, Activated; Complete Time: 17:57 pm03/04 16:22 Order name: Strep; Complete Time: 17:47 pm03/04 16:22 Order name: Troponin (emerg Dept Use Only); Complete Time: 17:47 pm03/04 16:22 Order name: Urine Microscopic Only; Complete Time: 18:27 pm03/04 16:22 Order name: CXR XRAY; Complete Time: 17:05 pm03/04 16:22 Order name: EKG; Complete Time: 16:23 pm03/04 16:22 Order name: Cardiac monitoring; Complete Time: 16:56 pm03/04 16:22 Order name: Basic Metabolic Panel; Complete Time: 17:47 EDMS 03/04 16:22 Order name: Blood Culture EDMS 03/04 16:23 Order name: C-Reactive Protein; Complete Time: 17:47 EDMS 03/04 16:23 Order name: CBC with Automated Diff; Complete Time: 17:05 EDMS 03/04 16:23 Order name: D-Dimer; Complete Time: 17:57 EDMS 03/04 16:23 Order name: Ferritin; Complete Time: 17:47 EDMS 03/04 16:23 Order name: Liver (Hepatic) Function; Complete Time: 17:47 EDMS 03/04 17:35 Order name: Throat Culture EDMS 03/04 18:06 Order name: Urine Dipstick-Ancillary; Complete Time: 18:10 EDMS 03/04 16:22 Order name: Droplet/Contact Precautions; Complete Time: 16:56 pm1 03/04 16:22 Order name: EKG - Nurse/Tech; Complete Time: 16:56 pm1 03/04 16:22 Order name: IV Start; Complete Time: 16:56 pm1 03/04 16:22 Order name: Labs collected and sent; Complete Time: 16:56 pm1 03/04 16:22 Order name: O2 Per Protocol; Complete Time: 16:56 pm1 03/04 16:22 Order name: O2 Sat Monitoring; Complete Time: 16:56 pm1 03/04 16:22 Order name: Urine Dipstick-Ancillary (obtain specimen) pm1 Administered Medications: 17:36 Drug: NS 0.9% 500 ml Route: IV; Rate: bolus; Site: right antecubital; ic1 Disposition Summary: 03/04/21 19:15 Left Against Medical Advice Location: Home pm1 Problem: new pm1 Symptoms: have improved pm1 Condition: Undetermined pm1 Diagnosis - Pneumonia due to SARS-associated coronavirus pm1 - Hypoxia pm1 - Vomiting pm1 Followup: pm1 - With: Emergency Department - When: As needed - Reason: Worsening of condition Followup: pm1 - With: Private Physician - When: Upon discharge from the Emergency Department - Reason: Recheck today's complaints, Continuance of care, Re-evaluation by your physician Discharge Instructions: - Discharge Summary Sheet pm1 - Vomiting, Adult pm1 - COVID-19 pm1 - COVID-19 Frequently Asked Questions pm1 - 10 Things You Can Do to Manage Your COVID-19 Symptoms at Home - [facility] pm1 - COVID-19: Quarantine vs. Isolation - [facility] pm1 Prescriptions: - ondansetron 4 mg Oral tablet,disintegrating - place 1 tablet by TRANSLINGUAL route every 8 hours As needed; 20 tablet; pm1 Refills: 0, Product Selection Permitted - Zithromax Z-Tushar 250 mg Oral Tablet - take 1 tablet by ORAL route as directed for 5 days Day 1 - take two (2) tablets pm1 one time. Day 2, 3, 4 , 5 take one (1) tablet once daily.; 6 tablet; Refills: 0, Product Selection Permitted - Prednisone 20 mg Oral Tablet - take 3 tablets by ORAL route once daily for 5 days; 15 tablet; Refills: 0, pm1 Product Selection Permitted Signatures: Dispatcher [employer] EDMS John Patel, KATY STRIPER pm1 Velvet Elaine RN RN ww Juliann Perez RN RN ic1 Corrections: (The following items were deleted from the chart) 16:57 16:23 BLOOD CULTURE*+[id number].LAB.BRZ ordered. EDMS EDMS
[2021-03-04 20:48] VITALS: TEMP 97.9
[2021-03-04 20:51] VITALS: BP 107/92; O2SAT 97
== END 2021-03-04 20:42 | disposition left against medical advice (07) ==
LOC: ER 14:54
DX: U07.1 COVID-19 (principal); J12.82 Pneumonia due to coronavirus disease 2019; R09.02 Hypoxemia; R11.10 Vomiting, unspecified; Z88.0 Allergy status to penicillin
CPT/HCPCS: 93005; 87040 ×2; 87070; 85025; 80048; 36415; 85610; 85379; 80076; 87081; 83605; 85730; 84484; 82728; 83690; 84145; 0240U; 86140; 71045; 99284; 81003; 81015

== ENCOUNTER 2022-03-14 09:53 | Emergency (ER) | payer OTHER ==
[2022-03-14 10:35] LABS: Urine Blood Negative (Negative); Urine Glucose Negative (Negative); Urine Protein Negative (Negative); Urine Specific Gravity >=1.030 (1.005-1.030)
[2022-03-14 10:47] LABS: Urine Bacteria <20 /HPF (<20); Urine Mucus Slight /HPF (None Seen); Urine RBC <5 /HPF (None Seen)
[2022-03-14 11:11] LABS: Absolute Lymphocytes (CBC) 1.6 K/uL (0.7-4.9); Hematocrit 38.3 % (36.0-45.0); Lymphocytes % 22.6 % (15.3-44.8); MCV 88.5 fL (80-100); MPV 8.8 fL (7.6-11.3); RBC Red Blood Cell Count 4.32 M/uL (3.86-4.86)
[2022-03-14 11:27] LABS: Albumin 3.5 g/dL (3.4-5.0); Bilirubin Total 0.3 mg/dL (0.2-1.0); Protein, Total 7.8 g/dL (6.4-8.2)
[2022-03-14 11:29] LABS: Potassium 4.3 mmol/L (3.5-5.1)
[2022-03-14 12:05] LABS: SARS-COV-2 RT PCR NEGATIVE (NEGATIVE)
--- NOTE | 2022-03-14 12:48 | EDPHYS ---
Physician Documentation [facility] Name: Nya Romero Age: 76 yrs Sex: Female : 1945 Arrival Date: 03/14/2022 Time: 09:56 Bed 16 Private MD: ED Physician Thiago Weeks HPI: 03/14 13:09 This 76 yrs old Black Female presents to ER via Wheelchair with complaints of Pain All kb Over, Weakness, Urinary Problem. 13:10 The patient presents with urinary symptoms, frequency. Onset: The symptoms/episode kb began/occurred 2 week(s) ago. Modifying factors: The symptoms are alleviated by nothing, the symptoms are aggravated by nothing. Associated signs and symptoms: Pertinent positives: urinary frequency. Severity of symptoms: At their worst the symptoms were moderate, in the emergency department the symptoms are unchanged. The patient has not experienced similar symptoms in the past. The patient has not recently seen a physician. Pt reports urinary frequency and weakness for 2 weeks. Sore throat, fatigue, bodyaches for one week. States she has an overactive bladder, but it just seems worse over the last 2 weeks. States she has arthritis that she takes hydrocodone for, but that feels worse too. Historical: - Allergies: 10:12 PENICILLINS; iw - PMHx: 10:12 Arthritis; CVA; iw - Immunization history:: Adult Immunizations unknown. - Social history:: Smoking status: . ROS: 13:09 Cardiovascular: Negative for chest pain, palpitations, and edema. kb 13:09 Constitutional: Positive for body aches, fatigue. 13:09 ENT: Positive for sore throat. 13:09 : Positive for urinary frequency. 13:09 Neuro: Positive for headache. 13:09 All other systems are negative. Exam: 13:09 Constitutional: This is a well developed, well nourished patient who is awake, alert, kb and in no acute distress. Head/Face: Normocephalic, atraumatic. ENT: Moist Mucous membranes Cardiovascular: Regular rate and rhythm with a normal S1 and S2. No gallops, murmurs, or rubs. No pulse deficits. Respiratory: Respirations even and unlabored. No increased work of breathing. Talking in full sentences Abdomen/GI: Soft, non-tender. No distention Skin: Warm, dry with normal turgor. Normal color. MS/ Extremity: Pulses equal, no cyanosis. Neurovascular intact. Full, normal range of motion. 13:09 Neuro: Exam negative for acute changes. Vital Signs: 10:11 BP 121 / 48; Pulse 89; Resp 16; Temp 97.9; Pulse Ox 96% ; Weight 92.99 kg; Height 5 ft. iw 5 in. (165.10 cm); 11:08 BP 136 / 89; Pulse 87; Resp 17; Pulse Ox 100% on R/A; kr3 12:32 BP 127 / 70; Pulse 81; Resp 17; Pulse Ox 99% on R/A; kr3 10:11 Body Mass Index 34.11 (92.99 kg, 165.10 cm) iw MDM: 10:05 Patient medically screened. kb 13:12 Differential diagnosis: urinary tract infection, covid, flu, arthritis, electrolyte kb abnormality. Data reviewed: vital signs, nurses notes. Consideration of Admission/Observation Escalation of care including admission/observation considered. 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 Counseling: I had a detailed discussion with the patient and/or guardian regarding: the historical points, exam findings, and any diagnostic results supporting the discharge/admit diagnosis, lab results, the need for outpatient follow up, a family practitioner, to return to the emergency department if symptoms worsen or persist or if there are any questions or concerns that arise at home. 03/14 10:11 Order name: COVID-19/FLU A+B; Complete Time: 12:41 kb 03/14 10:11 Order name: Strep; Complete Time: 12:41 kb 03/14 10:11 Order name: Urine Microscopic Only; Complete Time: 10:48 kb 03/14 10:11 Order name: CBC with Diff; Complete Time: 11:32 kb 03/14 10:11 Order name: CMP; Complete Time: 11:32 kb 03/14 10:35 Order name: Urine Dipstick-Ancillary; Complete Time: 10:38 EDMS 03/14 10:11 Order name: Urine Dipstick-Ancillary (obtain specimen); Complete Time: 10:43 kb 03/14 11:40 Order name: Throat Culture EDMS Administered Medications: No medications were administered Disposition: 16:39 Co-signature as Attending Physician, Thiago Weeks MD I agree with the assessment and kdr plan of care. Disposition Summary: 03/14/22 12:47 Discharge Ordered Location: Home kb Condition: Stable kb Diagnosis - Urinary frequency kb - Bodyaches kb - Other specified arthritis kb Followup: kb - With: Emergency Department - When: As needed - Reason: Worsening of condition Followup: kb - With: Private Physician - When: 2 - 3 days - Reason: Recheck today's complaints, Continuance of care, Re-evaluation by your physician Discharge Instructions: - Discharge Summary Sheet kb - Arthritis, [id number] kb - Urinary Frequency, Adult kb Forms: - Medication Reconciliation Form kb - Thank You Letter kb - Antibiotic Education kb - Prescription Opioid Use kb Signatures: Dispatcher [employer] EDMS Lydia Lee, SHANTANU-C SHANTANU-Thiago Gutierrez MD MD kdr Williams, Irene, RN RN iw Eusebia Newberry RN RN eh3
--- NOTE | 2022-03-14 12:48 | ER ---
Nurse's Notes [facility] Name: Nya Romero Age: 76 yrs Sex: Female : 1945 Arrival Date: 03/14/2022 Time: 09:56 Bed 16 Private MD: Diagnosis: Urinary frequency;Other specified arthritis Presentation: 03/14 10:10 Chief complaint: Friend and/or Co-Worker states: urinary frequency X 2 weeks, bodyaches iw since last week, weakness X 1 week, headache X 2 weeks, sore throat. Coronavirus screen: Client presents with at least one sign or symptom that may indicate coronavirus-19. Ebola Screen: Patient negative for fever greater than or equal to 101.5 degrees Fahrenheit, and additional compatible Ebola Virus Disease symptoms Patient denies exposure to infectious person. Patient denies travel to an Ebola-affected area in the 21 days before illness onset. No symptoms or risks identified at this time. Onset of symptoms was February 27, 2022. 10:10 Method Of Arrival: Wheelchair iw 10:10 Acuity: TUYET 3 iw 10:11 Initial Sepsis Screen: Does the patient meet any 2 criteria? No. Patient's initial iw sepsis screen is negative. Does the patient have a suspected source of infection? No. Patient's initial sepsis screen is negative. Risk Assessment: Do you want to hurt yourself or someone else? Patient reports no desire to harm self or others. Historical: - Allergies: 10:12 PENICILLINS; iw - PMHx: 10:12 Arthritis; CVA; iw - Immunization history:: Adult Immunizations unknown. - Social history:: Smoking status: . Screenin:38 [facility] ED Fall Risk Assessment (Adult) History of falling in the last 3 months, eh3 including since admission No falls in past 3 months (0 pts). Abuse screen: Denies threats or abuse. Denies injuries from another. Nutritional screening: No deficits noted. Tuberculosis screening: No symptoms or risk factors identified. Assessment: 11:07 General: Appears in no apparent distress. uncomfortable, Behavior is calm, cooperative, kr3 appropriate for age. Pain: Complains of pain in body aches. Neuro: Level of Consciousness is awake, alert, obeys commands, Oriented to person, place, time, situation. Cardiovascular: Patient's skin is warm and dry. Respiratory: Airway is patent Respiratory effort is even, unlabored, Respiratory pattern is regular, symmetrical. GI: Abdomen is round non-distended. : No signs and/or symptoms were reported regarding the genitourinary system. EENT: No signs and/or symptoms were reported regarding the EENT system. Derm: No deficits noted. Musculoskeletal: Range of motion: limited in left side. 12:20 Reassessment: Patient appears in no apparent distress at this time. Patient and/or kr3 family updated on plan of care and expected duration. Pain level reassessed. Patient is alert, oriented x 3, equal unlabored respirations, skin warm/dry/pink. Vital Signs: 10:11 BP 121 / 48; Pulse 89; Resp 16; Temp 97.9; Pulse Ox 96% ; Weight 92.99 kg; Height 5 ft. iw 5 in. (165.10 cm); 11:08 BP 136 / 89; Pulse 87; Resp 17; Pulse Ox 100% on R/A; kr3 12:32 BP 127 / 70; Pulse 81; Resp 17; Pulse Ox 99% on R/A; kr3 10:11 Body Mass Index 34.11 (92.99 kg, 165.10 cm) iw ED Course: 09:56 Patient arrived in ED. mr 10:05 Lydia Lee FNP-C [facility]. kb 10:05 Thiago Weeks MD is Attending Physician. kb 10:11 Triage completed. iw 10:12 Arm band placed on. iw 10:15 Anuradha Gomez, RN is Primary Nurse. kr3 10:58 CMP Sent. kr3 10:58 CBC with Diff Sent. kr3 10:58 Strep Sent. kr3 10:58 COVID-19/FLU A+B Sent. kr3 13:38 Patient has correct armband on for positive identification. eh3 13:38 No provider procedures requiring assistance completed. IV discontinued, intact, eh3 bleeding controlled, No redness/swelling at site. Pressure dressing applied. Administered Medications: No medications were administered Medication: 13:38 VIS not applicable for this client. eh3 Outcome: 12:47 Discharge ordered by . kb 13:41 Discharged to home via wheelchair, with family. eh3 13:41 Condition: stable 13:41 Discharge instructions given to patient, family, Instructed on discharge instructions, follow up and referral plans. Demonstrated understanding of instructions, follow-up care. 13:52 Patient left the ED. 3 Signatures: Lydia Lee, ROSALIO FOURNIER-Lisa Mendiola Irene, RN JEREMY Eusebia Newberry RN RN 3 Anuradha Gomez RN RN 3
[2022-03-14 14:31] VITALS: BP 127/70
[2022-03-14 14:37] VITALS: TEMP 98.1; O2SAT 100
== END 2022-03-14 13:52 | disposition home or self-care (01) ==
LOC: ER 09:53
DX: R35.0 Frequency of micturition (principal); R52 Pain, unspecified; M19.90 Unspecified osteoarthritis, unspecified site; Z88.0 Allergy status to penicillin; Z86.73 Personal history of transient ischemic attack (TIA), and cerebral infarction without residual deficits; Z20.822 Contact with and (suspected) exposure to COVID-19
CPT/HCPCS: 87070; 85025; 36415; 87081; 80053; 0240U; 99283; 81003; 81015